=== PATIENT | male | born 1970 | race Caucasian/White ===

== ENCOUNTER 2017-01-26 16:50 | Emergency (ER) | payer OTHER ==
[~2017-01-26] VITALS: Ht 170.2 cm; Wt 77.0 kg
[2017-01-26 17:21] LABS: HEMATOCRIT 49.8 % (38.0-50.0); MCHC 35.1 G/DL (30.0-36.0); MCV 85.4 FL (86-99); MEAN PLAT.VOLUME 10.1 uM^3 (9.0-12.4); PLATELET COUNT 170 K/uL (156-360); RBC DIS.WIDTH-CV 13.2 % (11.8-14.6); RBC DIS.WIDTH-SD 41.1 % (39-53); RED BLOOD COUNT 5.83 M/uL (4.00-5.50); WHITE BLOOD COUNT 7.4 K/uL (4.1-10.2)
[2017-01-26 17:29] LABS: CHLORIDE 107 mEq/L (99-109); POTASSIUM 4.2 mEq/L (3.7-5.4); SODIUM 138 mEq/L (136-147)
[2017-01-26 17:31] LABS: GLUCOSE 100 mg/dL (70-99)
[2017-01-26 17:32] LABS: ANION GAP 10 MEQ/L (2-14)
[2017-01-26 17:34] LABS: GFR ESTIMATE (CALCULATED) > 59 mL/min/
[2017-01-26 17:35] LABS: UREA NITROGEN (BUN) 16 mg/dL (9-23)
[2017-01-26] MEDS ORDERED: LISINOPRIL10 MG PO (17:49)
[2017-01-26] MEDS ORDERED: EPIPEN ADU0.3 MG/0.3 IM (17:59)
[2017-01-26 20:56] VITALS: BP 119/80
== END 2017-01-26 20:57 | disposition home or self-care (01) ==
LOC: EME 16:50
PROVIDERS: Emergency Medicine
DX: T78.3XXA Angioneurotic edema, initial encounter (principal); T46.4X5A Adverse effect of angiotensin-converting-enzyme inhibitors, initial encounter; Z88.0 Allergy status to penicillin; Z88.6 Allergy status to analgesic agent
CPT/HCPCS: 80048; 85027; 99281; 99285; J1200; J2930; J7030; S0028

== ENCOUNTER 2017-07-07 07:57 | Day surgery (SDC) | payer OTHER ==
[~2017-07-07] VITALS: Ht 170.2 cm; Wt 82.1 kg
[~2017-07-07 07:57] MED LIST: ALEVE220 M2 PO; ASPIR 8181 M1 PO; EPIPEN ADU0.3 MG/0.3 IM; FLEXERIL5 MG PO; HYDROCHLOROTH12.5 M3 PO; LISINOPRIL10 MG PO; PHENTERMINE HCL30 MG PO
[2017-07-11] MEDS ORDERED: HYDROCHLOROTHIA25 MG PO (15:21)
== END 2017-07-07 09:15 | disposition home or self-care (01) ==
LOC: PAIN 07:57 → SDC 08:30 → PAIN 09:15
DX: M47.812 Spondylosis without myelopathy or radiculopathy, cervical region (principal); M50.01 Cervical disc disorder with myelopathy, high cervical region; M54.12 Radiculopathy, cervical region; G89.29 Other chronic pain; I10 Essential (primary) hypertension; M51.26 Other intervertebral disc displacement, lumbar region; K21.9 Gastro-esophageal reflux disease without esophagitis; Z79.891 Long term (current) use of opiate analgesic; Z79.82 Long term (current) use of aspirin
CPT/HCPCS: J1030; J2250; J3010; S0020

== ENCOUNTER 2017-07-14 07:56 | Day surgery (SDC) | payer OTHER ==
[~2017-07-14] VITALS: Ht 170.2 cm; Wt 82.1 kg
[~2017-07-14 07:56] MED LIST changes: +HYDROCHLOROTHIA25 MG PO
== END 2017-07-14 09:25 | disposition home or self-care (01) ==
LOC: PAIN 07:56 → SDC 08:30 → PAIN 09:25
DX: M47.812 Spondylosis without myelopathy or radiculopathy, cervical region (principal); M50.01 Cervical disc disorder with myelopathy, high cervical region; M54.12 Radiculopathy, cervical region; M50.31 Other cervical disc degeneration, high cervical region; M51.26 Other intervertebral disc displacement, lumbar region; I10 Essential (primary) hypertension; F41.9 Anxiety disorder, unspecified; Z79.82 Long term (current) use of aspirin
CPT/HCPCS: J1030; J2250; J3010; S0020

== ENCOUNTER 2017-08-25 10:03 | Day surgery (SDC) | payer OTHER ==
[~2017-08-25] VITALS: Ht 172.7 cm; Wt 80.7 kg
[~2017-08-25 10:03] MED LIST changes: +MEN'S MULTI-VI1 EACH PO
== END 2017-08-25 11:20 | disposition home or self-care (01) ==
LOC: PAIN 10:03 → SDC 10:30 → PAIN 11:20
DX: M47.812 Spondylosis without myelopathy or radiculopathy, cervical region (principal); M50.01 Cervical disc disorder with myelopathy, high cervical region; M54.12 Radiculopathy, cervical region; M51.26 Other intervertebral disc displacement, lumbar region; F41.8 Other specified anxiety disorders; Z79.82 Long term (current) use of aspirin; Z79.891 Long term (current) use of opiate analgesic
CPT/HCPCS: J1030; J1885; J2250; S0020

== ENCOUNTER 2017-09-01 10:42 | Day surgery (SDC) | payer OTHER ==
[~2017-09-01] VITALS: Ht 172.7 cm; Wt 80.7 kg
== END 2017-09-01 12:40 | disposition home or self-care (01) ==
LOC: PAIN 10:42 → SDC 11:30 → PAIN 12:40
PROC: 3E0T3TZ Introduction of Destructive Agent into Peripheral Nerves and Plexi, Percutaneous Approach (ICD-10-PCS; principal; 2017-09-01)
PROC: BR141ZZ Fluoroscopy of Cervical Facet Joint(s) using Low Osmolar Contrast (ICD-10-PCS; principal; 2017-09-01)
DX: M47.812 Spondylosis without myelopathy or radiculopathy, cervical region (principal); M50.00 Cervical disc disorder with myelopathy, unspecified cervical region; M54.12 Radiculopathy, cervical region; M51.26 Other intervertebral disc displacement, lumbar region; I10 Essential (primary) hypertension; E66.9 Obesity, unspecified; Z68.28 Body mass index [BMI] 28.0-28.9, adult; Z79.82 Long term (current) use of aspirin; Z91.018 Allergy to other foods; J30.9 Allergic rhinitis, unspecified; Z88.8 Allergy status to other drugs, medicaments and biological substances
CPT/HCPCS: J1030; J1885; J2250; S0020

== ENCOUNTER 2017-10-27 09:24 | Day surgery (SDC) | payer OTHER ==
[~2017-10-27] VITALS: Ht 172.7 cm; Wt 80.7 kg
[~2017-10-27 09:24] MED LIST changes: +DYAZIDE, MA1 CAPSULE PO
== END 2017-10-27 11:00 | disposition home or self-care (01) ==
LOC: PAIN 09:24 → SDC 10:15 → PAIN 10:15
DX: M47.816 Spondylosis without myelopathy or radiculopathy, lumbar region (principal); M51.26 Other intervertebral disc displacement, lumbar region; M47.812 Spondylosis without myelopathy or radiculopathy, cervical region; M41.9 Scoliosis, unspecified; I10 Essential (primary) hypertension; F41.8 Other specified anxiety disorders; Z79.82 Long term (current) use of aspirin
CPT/HCPCS: J1030; J2250; S0020

== ENCOUNTER 2017-11-05 19:13 | Emergency (ER) | payer OTHER ==
[~2017-11-05] VITALS: Ht 170.2 cm; Wt 85.1 kg
[2017-11-05] MEDS ORDERED: PERCOCET 5/31 TABLET PO (20:49)
[2017-11-05] MEDS ORDERED: MOTRIN800 MG PO (20:49)
[2017-11-05] MEDS ORDERED: FLEXERIL10 MG PO (20:49)
[2017-11-05 21:08] VITALS: BP 141/96
[2017-11-08] MEDS ORDERED: ALDACTONE25 MG PO (09:30)
[2017-11-08] MEDS ORDERED: HYDROCHLOROTHIA25 MG PO (09:30)
== END 2017-11-05 21:09 | disposition home or self-care (01) ==
LOC: EME 19:13
DX: S49.91XA Unspecified injury of right shoulder and upper arm, initial encounter (principal); V29.9XXA Motorcycle rider (driver) (passenger) injured in unspecified traffic accident, initial encounter; Y92.410 Unspecified street and highway as the place of occurrence of the external cause; K21.9 Gastro-esophageal reflux disease without esophagitis; I10 Essential (primary) hypertension; Z88.0 Allergy status to penicillin; Z88.6 Allergy status to analgesic agent; Z88.8 Allergy status to other drugs, medicaments and biological substances
CPT/HCPCS: 73030; 99281; 99284; J2405; J3010

== ENCOUNTER 2017-11-07 15:12 | Day surgery (SDC) | payer OTHER ==
[~2017-11-07] VITALS: Ht 170.2 cm; Wt 84.0 kg
[~2017-11-07 15:12] MED LIST changes: +FLEXERIL10 MG PO; +MOTRIN800 MG PO; +PERCOCET 5/31 TABLET PO
[2017-11-07 15:49] VITALS: BP 177/102
[2017-11-07 19:36] VITALS: BP 155/86
[2017-11-07 20:12] VITALS: BP 141/79
[2017-11-08] MEDS ORDERED: HYDROCHLOROTHIA25 MG PO (09:30)
[2017-11-08] MEDS ORDERED: ALDACTONE25 MG PO (09:30)
== END 2017-11-07 20:17 | disposition home or self-care (01) ==
LOC: SDC 15:12
PROC: 0RSJXZZ Reposition Right Shoulder Joint, External Approach (ICD-10-PCS; principal; 2017-11-07)
DX: S43.084A Other dislocation of right shoulder joint, initial encounter (principal)
CPT/HCPCS: 73030; 76000; J1170; J3010

== ENCOUNTER 2017-11-10 09:28 | Day surgery (SDC) | payer OTHER ==
[~2017-11-10] VITALS: Ht 172.7 cm; Wt 80.7 kg
[~2017-11-10 09:28] MED LIST changes: +ALDACTONE25 MG PO
== END 2017-11-10 11:11 | disposition home or self-care (01) ==
LOC: PAIN 09:28
DX: M47.816 Spondylosis without myelopathy or radiculopathy, lumbar region (principal); M51.26 Other intervertebral disc displacement, lumbar region; M47.812 Spondylosis without myelopathy or radiculopathy, cervical region; M54.2 Cervicalgia; I10 Essential (primary) hypertension; K21.9 Gastro-esophageal reflux disease without esophagitis; Z79.891 Long term (current) use of opiate analgesic
CPT/HCPCS: J1030; J2250; S0020

== ENCOUNTER 2017-12-15 08:46 | Day surgery (SDC) | payer OTHER ==
[~2017-12-15] VITALS: Ht 172.7 cm; Wt 80.7 kg
== END 2017-12-15 10:20 | disposition home or self-care (01) ==
LOC: PAIN 08:46 → SDC 09:30 → PAIN 10:20
DX: M47.816 Spondylosis without myelopathy or radiculopathy, lumbar region (principal); M47.812 Spondylosis without myelopathy or radiculopathy, cervical region; M51.26 Other intervertebral disc displacement, lumbar region; M41.9 Scoliosis, unspecified; I10 Essential (primary) hypertension; F41.8 Other specified anxiety disorders; K21.9 Gastro-esophageal reflux disease without esophagitis; Z79.82 Long term (current) use of aspirin
CPT/HCPCS: J1030; J2250; S0020

== ENCOUNTER 2017-12-22 08:49 | Day surgery (SDC) | payer OTHER ==
[~2017-12-22] VITALS: Ht 172.7 cm; Wt 80.7 kg
== END 2017-12-22 10:35 | disposition home or self-care (01) ==
LOC: PAIN 08:49 → SDC 09:30 → PAIN 09:30
DX: M47.816 Spondylosis without myelopathy or radiculopathy, lumbar region (principal); M51.26 Other intervertebral disc displacement, lumbar region; M47.812 Spondylosis without myelopathy or radiculopathy, cervical region; M41.9 Scoliosis, unspecified; I10 Essential (primary) hypertension; Z79.82 Long term (current) use of aspirin; F41.8 Other specified anxiety disorders; Z91.018 Allergy to other foods; Z88.8 Allergy status to other drugs, medicaments and biological substances
CPT/HCPCS: J1030; J2250; J3010; S0020